=== PATIENT | female | born 1965 | race Caucasian/White ===

== ENCOUNTER 2019-04-25 11:27 | Outpatient (CLI) | payer BC, SELFPAY ==
--- NOTE | ~2019-04-25 | MMUS_ITS ---
EXAMINATION: MM diagnostic rodrigo RT w lani, US breast RT limited HISTORY: Palpable right breast lump at the 12:00 location, family history of breast cancer in her sis ter TECHNIQUE: Craniocaudal, mediolateral, and mediolateral oblique 3-D tomosynthesis images of the right breast were performed and synthetic 2-D images were generated. Spot compression views are also obtai hannah CAD analysis was submitted and interpreted. High resolution limited right breast ultrasound was p erformed. COMPARISON: 03/02/2019, 02/13/2019, 02/08/2018 BREAST PARENCHYMAL COMPOSITION: There are scattered areas of fibroglandular density. FINDINGS: MAMMOGRAPHIC FINDINGS: There is no evidence of suspicious mass, calcification, or architectural distortion in either breast to suggest malignancy. There has been no suspicious interval change. No mammographic correlate is i dentified for the reported palpable abnormality of concern. ULTRASOUND: There is no evidence of focal abnormal solid or cystic lesion in the vicinity of the reported palpabl e abnormality of concern. Incidental note is made of a benign intramammary lymph node at the 10:00 lo cation 5 cm from the nipple. IMPRESSION: 1. No specific mammographic or sonographic correlate is identified for the reported palpable abnormal ity of concern. Further evaluation at this time should be based on clinical assessment. Continued fol low-up physical examination is recommended. 2. Routine screening mammography is recommended. BI-RADS Category 2: Benign finding(s). Reviewed, dictated and finalized at location A. 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 No specific mammographic or sonographic correlate is identified for the repo rted palpable abnormality of concern. Further evaluation at this time should be based on clinical assessment. Continued follow-up physical examination is dorothy mmended. 2. Routine screening mammography is recommended. BI-RADS Category 2: Benign finding(s).
== END 2019-04-25 11:28 | disposition home or self-care (01) ==
DX: R92.8 Other abnormal and inconclusive findings on diagnostic imaging of breast (principal)
CPT/HCPCS: 76642; 77061; 77065; G0279